=== PATIENT | male | born 1945 | race Caucasian/White ===

== ENCOUNTER 2018-11-30 10:49 | Emergency (ER) | payer MEDICARE, OTHER ==
[~2018-11-30] VITALS: Ht 157.5 cm; Wt 80.0 kg
[2018-11-30] MEDS ORDERED: BENA20 PO (11:03)
[2018-11-30] MEDS ORDERED: FURO40I IM (11:03)
[2018-11-30] MEDS ORDERED: NICA PO (11:03)
[2018-11-30] MEDS ORDERED: FURO40 PO (11:12)
[2018-11-30 11:40] VITALS: BP 163/95
== END 2018-11-30 12:18 | disposition home or self-care (01) ==
LOC: EMS 10:51
DX: I10 Essential (primary) hypertension (principal); Z76.0 Encounter for issue of repeat prescription; Z79.899 Other long term (current) drug therapy